=== PATIENT | female | born 1935 | race Caucasian/White ===

== ENCOUNTER 2016-06-09 15:34 | Emergency (ER) | payer MEDICARE ==
--- NOTE | 2016-06-09 17:40 | ER Document Report ---
ED Medical Screen (RME) - General TRAVEL OUTSIDE OF THE U.S. IN LAST 30 DAYS: No - General Chief Complaint: Shortness Of Breath Stated Complaint: DIFFICULTY BREATHING Notes: Patient is a 80-year-old female presenting with sore difficulty breathing, cough and congestion. Patient states she's had these symptoms for 3-4 days. Patient states she saw Dr. Rodriguez today for shortness of breath and he sent her to the emergency department. Patient has gained 5 pounds in the past week. Patient states that her blood glucose level has been higher than usual and the 200s and was in the 300s one time. Patient states her last A1c was 9.2. Patient hasn't seen a physician at [facility] because she has not been able to get a new physician in this area. Patient has been living in this area for 5 years. Patient has a history of CHF, asthma, COPD, emphysema, irregular heartbeat, SC, and is an insulin-dependent diabetic. Patient states she takes 40 of Lasix once a day. Patient states she had a heart catheterization in [place], [place] for half years ago. Patient had a myocardial infarction 6-7 years ago with no catheterization. patient states she takes aspirin daily and has not had a history of blood clots. (ELLY BUTT) - Related Data Allergies/Adverse Reactions: azithromycin Allergy (Verified 06/09/16 15:48) carvedilol [From Coreg] Allergy (Verified 06/09/16 15:48) cephalexin [From Keflex] Allergy (Verified 06/09/16 15:48) fentanyl Allergy (Verified 06/09/16 15:48) meperidine [From Demerol] Allergy (Verified 06/09/16 15:48) morphine Allergy (Verified 06/09/16 15:48) Past Medical History - Social History Chew tobacco use (# tins/day): No Frequency of alcohol use: None Drug Abuse: None - Past Medical History Cardiac Medical History: Reports: Hx Congestive Heart Failure, Hx Hypercholesterolemia, Hx Hypertension Pulmonary Medical History: Reports: Hx Asthma, Hx COPD Endocrine Medical History: Reports: Hx Diabetes Mellitus Type 2 Renal/ Medical History: Denies: Hx Peritoneal Dialysis GI Medical History: Reports: Hx Gastroesophageal Reflux Disease Psychiatric Medical History: Reports: Hx Depression - Immunizations Hx Diphtheria, Pertussis, Tetanus Vaccination: Yes Physical Exam - Respiratory Respiratory status: No respiratory distress Chest status: Nontender Breath sounds: Other - Database urinalysis bilaterally. - Cardiovascular Rhythm: Regular Heart sounds: Normal auscultation Murmur: No - Extremities General lower extremity: No: Edema - no pitting edema Course - Re-evaluation Re-evalutation: 06/09/16 17:49 Patient presents emergency per with a chief complaint mild cough congestion and shortness of breath for 3-4 days. She is insulin-dependent diabetes asthma CHF on 40 of Lasix by mouth daily COPD on O2 3 L [id number] including CPAP at night with oxygen history of SC heart catheter 4 years ago no stents or intervention. Not on any blood thinners except for aspirin no history of A. fib. Noticed an increased weight gain of 3-4 pounds over the past week. Has been managed by a primary care physician in [facility] while living here for the past 2 years has never been to the emergency department before sees Dr. Ventura for the CPAP machine at night followed up with him in the office today and they were concerned and sent her over here for evaluation. On ED arrival she is afebrile blood pressure stable she's little tachycardic she is 96% on 3 L with no respiratory distress. Heart rate and rhythm is regular without murmur Rub lungs are diminished with bibasilar rales no wheezes. Unable to do abdominal exam sent in the upright position no peripheral edema pitting bilaterally Tenderness swelling cellulitis or history DVT or pulmonary emboli. EKG chest x-ray acute labs and assessed in the back by ED physician for further assessment and disposition. I personally performed the services described in the documentation reviewed the documentation recorded by the scribe in my presence and it accurately incompletely records my words and actions (TRACIE BAH) - Vital Signs Vital signs: Temp Pulse Resp BP Pulse Ox 98.4 F 107 H 20 152/77 H 96 06/09/16 15:48 06/09/16 15:48 06/09/16 15:48 06/09/16 15:48 06/09/16 15:48 Scribe Documentation - Scribe Written by Scribe:: Elly Butt 06/09/16 17:50 acting as scribe for :: Reid
[2016-06-09 18:24] LABS: ABSOLUTE BASOPHILS # (AUTO) 0.1 10^3/uL (0.0-0.2); ABSOLUTE EOSINOPHILS # (AUTO) 0.3 10^3/uL (0.0-0.6); ABSOLUTE LYMPHOCYTES (AUTO) 2.2 10^3/uL (0.5-4.7); ABSOLUTE MONOCYTES (AUTO) 0.7 10^3/uL (0.1-1.4); ABSOLUTE NEUT (AUTO) 6.5 10^3/uL (1.7-8.2); BASOPHILS % (AUTO) 1.1 % (0-2); EOSINOPHILS % (AUTO) 2.7 % (0-6); HEMATOCRIT 38.8 % (36.0-47.0); HEMOGLOBIN 12.3 g/dL (12.0-15.5); HGB HCT DIFFERENCE -1.9; LYMPHOCYTES % (AUTO) 22.5 % (13-45); MEAN CORPUSCULAR HEMOGLOBIN 25.3 pg (27.0-33.4); MEAN CORPUSCULAR HGB CONC 31.8 g/dL (32.0-36.0); MEAN CORPUSCULAR VOLUME 80 fl (80-97); MONOCYTES % (AUTO) 7.3 % (3-13); RED BLOOD COUNT 4.87 10^6/uL (3.72-5.28); SEGMENTED NEUTROPHILS % (AUTO) 66.4 % (42-78); WHITE BLOOD COUNT 9.8 10^3/uL (4.0-10.5)
--- NOTE | 2016-06-09 18:41 | ER Document Report ---
Doctor's Note Notes: 06/09/16 18:40 EKG interpreted by myself to reveal sinus tachycardia 10 1 bpm with left ventricular hypertrophy no acute ST segment elevation or depression
[2016-06-09 18:48] LABS: ALANINE AMINOTRANSFERASE 23 U/L (9-52); ALBUMIN 3.8 g/dL (3.5-5.0); ALKALINE PHOSPHATASE 94 U/L (38-126); ANION GAP 12 (5-19); ASPARTATE AMINO TRANSFERASE 20 U/L (14-36); BILIRUBIN,DIRECT 0.2 mg/dL (0.0-0.4); BILIRUBIN,TOTAL 0.4 mg/dL (0.2-1.3); BLOOD UREA NITROGEN 20 mg/dL (7-20); CALCIUM 9.3 mg/dL (8.4-10.2); CARBON DIOXIDE 32 mmol/L (22-30); CHLORIDE 98 mmol/L (98-107); CREATINE KINASE 44 U/L (30-135); CREATININE RESULT 0.72 mg/dL (0.52-1.25); GLUCOSE 154 mg/dL (75-110); POTASSIUM 4.2 mmol/L (3.6-5.0); SODIUM 142.2 mmol/L (137-145); TOTAL PROTEIN 6.9 g/dL (6.3-8.2)
[2016-06-09 19:05] LABS: TROPONIN I < 0.012 ng/mL
[2016-06-09] MEDS ORDERED: IPRATROPIUM/ALBUTEROL 0.5-2.5 MG/3 ML AMPUL NEB ONE (19:17)
--- NOTE | 2016-06-09 19:22 | ER Document Report ---
ED Respiratory Problem - General Chief Complaint: Shortness Of Breath Stated Complaint: DIFFICULTY BREATHING Time seen by provider: 19:18 Mode of Arrival: Ambulatory Information source: Patient TRAVEL OUTSIDE OF THE U.S. IN LAST 30 DAYS: No - HPI Patient complains to provider of: COPD, Cough, Short of breath Onset: Last week Duration: Worse/persistent Quality of pain: No pain Context: Hx CHF, Hx COPD Short of Breath: Mild Chest pain/discomfort: Tightness Cough: Productive Sputum amount: Small Sputum color: White Sputum consistency: Mucoid At home treatment: Bronchodilators, Inhaled steroids Associated symptoms: Congestion, Cough, Short of breath Similar symptoms previously: Yes Recently seen / treated by doctor: Yes Notes: Patient is a 80-year-old female who was sent to the emergency room from Dr. Rodriguez's office for complaints of cough, congestion, shortness of breath that's been going on over the past week and worsening today, patient reports she is also tired at times, she denies any fever, cough is productive of a very small amount of whitish colored phlegm, she denies chest pain but does report chest tightness, she has been using her albuterol nebulizer treatments 3 times a day at home, and also uses Symbicort, she is on 3 L of oxygen at home and uses C Pap at night - Related Data Allergies/Adverse Reactions: azithromycin Allergy (Verified 06/09/16 15:48) carvedilol [From Coreg] Allergy (Verified 06/09/16 15:48) cephalexin [From Keflex] Allergy (Verified 06/09/16 15:48) fentanyl Allergy (Verified 06/09/16 15:48) meperidine [From Demerol] Allergy (Verified 06/09/16 15:48) morphine Allergy (Verified 06/09/16 15:48) Past Medical History - General Information source: Patient - Social History Smoking Status: Former Smoker Chew tobacco use (# tins/day): No Frequency of alcohol use: None Drug Abuse: None Family History: Reviewed & Not Pertinent Patient has suicidal ideation: No Patient has homicidal ideation: No - Past Medical History Cardiac Medical History: Reports: Hx Congestive Heart Failure, Hx Hypercholesterolemia, Hx Hypertension Pulmonary Medical History: Reports: Hx Asthma, Hx COPD Endocrine Medical History: Reports: Hx Diabetes Mellitus Type 2 Renal/ Medical History: Denies: Hx Peritoneal Dialysis GI Medical History: Reports: Hx Gastroesophageal Reflux Disease Psychiatric Medical History: Reports: Hx Depression - Immunizations Hx Diphtheria, Pertussis, Tetanus Vaccination: Yes Review of Systems - Review of Systems Constitutional: Malaise EENT: No symptoms reported Cardiovascular: No symptoms reported Respiratory: See HPI Gastrointestinal: No symptoms reported Genitourinary: No symptoms reported Female Genitourinary: No symptoms reported Musculoskeletal: No symptoms reported Skin: No symptoms reported Hematologic/Lymphatic: No symptoms reported Neurological/Psychological: No symptoms reported -: Yes All other systems reviewed and negative Physical Exam - Vital signs Vitals: Temp Pulse Resp BP Pulse Ox 98.4 F 107 H 20 152/77 H 96 06/09/16 15:48 06/09/16 15:48 06/09/16 15:48 06/09/16 15:48 06/09/16 15:48 Interpretation: Normal - General General appearance: Appears well, Alert - HEENT Head: Normocephalic, Atraumatic Eyes: Normal Pupils: PERRL - Respiratory Respiratory status: No respiratory distress Chest status: Nontender Breath sounds: Nonproductive cough, Wheezing - Very mild wheeze on end of exhalation Chest palpation: Normal - Cardiovascular Rhythm: Regular Heart sounds: Normal auscultation Murmur: No - Abdominal Inspection: Normal, Obese Distension: No distension Bowel sounds: Normal Tenderness: Nontender Organomegaly: No organomegaly - Back Back: Normal, Nontender - Extremities General upper extremity: Normal inspection, Nontender, Normal color, Normal ROM , Normal temperature General lower extremity: Normal inspection, Nontender, Normal color, Normal ROM , Normal temperature, Normal weight bearing. No: Margo's sign - Neurological Neuro grossly intact: Yes Cognition: Normal Orientation: AAOx4 Yung Coma Scale Eye Opening: Spontaneous Yung Coma Scale Verbal: Oriented Yung Coma Scale Motor: Obeys Commands Yung Coma Scale Total: 15 Speech: Normal Motor strength normal: LUE, RUE, LLE, RLE Sensory: Normal - Psychological Associated symptoms: Normal affect, Normal mood - Skin Skin Temperature: Warm Skin Moisture: Dry Skin Color: Normal Course - Re-evaluation Re-evalutation: 06/09/16 19:50 Patient resting comfortably, lab and imaging findings discussed with her at bedside which are relatively unremarkable, patient's lungs are clear to auscultation after one breathing treatment, she will be discharged home with instructions for follow-up and advised to return if symptoms worsen, patient acknowledges understanding and agreement with this plan - Vital Signs Vital signs: Temp Pulse Resp BP Pulse Ox 98.4 F 70 20 129/65 H 96 06/09/16 15:48 06/09/16 19:38 06/09/16 19:38 06/09/16 19:38 06/09/16 15:48 - Laboratory Result Diagrams: 06/09/16 17:50 06/09/16 17:50 Laboratory results interpreted by me: 06/09/16 06/09/16 17:50 17:50 MCH 25.3 L MCHC 31.8 L RDW 19.0 H Carbon Dioxide 32 H Glucose 154 H - Diagnostic Test Radiology reviewed: Image reviewed, Reports reviewed - EKG Interpretation by Me EKG shows normal: Sinus rhythm Rate: Tachycardia Rhythm: NSR Discharge - Discharge Clinical Impression: Viral upper respiratory illness Condition: Stable Disposition: HOME, SELF-CARE Instructions: Upper Respiratory Illness ([facility]), Viral Syndrome ([facility]) Additional Instructions: Follow up with your primary care provider in one to 2 days. Return to the emergency room immediately if symptoms worsen or any additional concerns.
--- NOTE | 2016-06-09 19:39 | EKG REPORT ---
SEVERITY:- ABNORMAL ECG - SINUS TACHYCARDIA LEFT VENTRICULAR HYPERTROPHY : Confirmed by: Timbo Rodriguez 09-Jun-2016 19:38:39
[2016-06-09 20:30] VITALS: BP 126/67
== END 2016-06-09 20:31 | disposition home or self-care (01) ==
LOC: ER 15:34
DX: J06.9 Acute upper respiratory infection, unspecified (principal); B97.89 Other viral agents as the cause of diseases classified elsewhere; J44.9 Chronic obstructive pulmonary disease, unspecified; R05 Cough; R06.02 Shortness of breath; R07.89 Other chest pain; R53.83 Other fatigue; R53.81 Other malaise; R00.0 Tachycardia, unspecified; E11.9 Type 2 diabetes mellitus without complications; Z99.81 Dependence on supplemental oxygen; Z79.51 Long term (current) use of inhaled steroids; Z79.899 Other long term (current) drug therapy; Z88.1 Allergy status to other antibiotic agents; Z88.8 Allergy status to other drugs, medicaments and biological substances; Z88.5 Allergy status to narcotic agent; Z87.891 Personal history of nicotine dependence; Z86.79 Personal history of other diseases of the circulatory system
CPT/HCPCS: 93005; 94640; 99285; 36415; 82550; 85025; 80053; 84484; 83880; 71010; 93010; A9270; J7620

== ENCOUNTER → 2016-07-25 | Outpatient (CLI) | payer MEDICARE ==
--- NOTE | 2016-07-25 12:45 | RADIOLOGY REPORT (SQ) ---
EXAM DESCRIPTION: KUB COMPLETED DATE/TIME: 07/25/2016 12:10 pm REASON FOR STUDY: HYDRONEPHROSIS WITH RENAL AND URETERAL CALCULOUS OBSTRUCTION N13.2 HYDRONEPHROSIS WITH RENAL AND URETERAL CALCULOUS OBSTR COMPARISON: None. NUMBER OF VIEWS: One view. TECHNIQUE: AP supine digital radiograph of the abdomen. LIMITATIONS: None. FINDINGS: CALCIFICATIONS: RIGHT KIDNEY: None. RIGHT URETER: 5 mm calcification overlying the right sacrum. LEFT KIDNEY: Faint 2 mm calcification in the mid kidney. LEFT URETER: No calcifications in the expected location of the ureter. BLADDER: No suspicious calcifications in the pelvis. Incidental calcified phleboliths. BOWEL GAS PATTERN AND SOFT TISSUES: Normal bowel gas pattern. No masses or organomegaly. BONES: No acute fracture. No worrisome bone lesions. OTHER: None. IMPRESSION: FAINT 2 MM CALCULUS IN THE LEFT KIDNEY. 5 MM CALCIFICATION OVERLYING THE RIGHT SACRUM I S PROBABLY A CALCIFIED PHLEBOLITH. URETERAL CALCULUS CANNOT BE EXCLUDED TECHNICAL DOCUMENTATION: JOB ID: [id number]- All Rights Reserved
== END ==
LOC: OD 11:35
PROVIDERS: ATTEND Urology
DX: N13.2 Hydronephrosis with renal and ureteral calculous obstruction (principal)
CPT/HCPCS: 74000

== ENCOUNTER → 2017-05-24 | Outpatient (CLI) | payer MEDICARE ==
--- NOTE | 2017-05-24 17:33 | RADIOLOGY REPORT (SQ) ---
EXAM DESCRIPTION: CHEST PA/LATERAL COMPLETED DATE/TIME: 05/24/2017 5:18 pm REASON FOR STUDY: SHORTNESS OF BREATH COMPARISON: AP chest 06/09/2016 EXAM PARAMETERS: NUMBER OF VIEWS: two views TECHNIQUE: Digital Frontal and Lateral radiographic views of the chest acquired. RADIATION DOSE: NA LIMITATIONS: Large patient, AP technique in a wheelchair FINDINGS: LUNGS AND PLEURA: No opacities, masses or pneumothorax. No pleural effusion. MEDIASTINUM AND HILAR STRUCTURES: No masses or contour abnormalities. HEART AND VASCULAR STRUCTURES: Mild cardiomegaly BONES: Lower cervical fusion hardware. Thoracic spine osteopenic without gross compression deformity HARDWARE: None in the chest. OTHER: No other significant finding. IMPRESSION: NO SIGNIFICANT RADIOGRAPHIC FINDING IN THE CHEST. TECHNICAL DOCUMENTATION: JOB ID: [id number] [employer]- All Rights Reserved Reading location - IP/workstation name: [facility]
== END ==
LOC: OD 16:18
PROVIDERS: ATTEND Physician Assistant Medical
DX: R06.02 Shortness of breath (principal)
CPT/HCPCS: 36415; 71046; 80053; 85025

== ENCOUNTER 2017-06-06 14:50 | Observation (INO) | payer MEDICARE ==
[2017-06-06] MEDS ORDERED: NORMAL SALINE 1000 ML 1,000 ML IV ONE ×2 (15:51→20:51)
--- NOTE | 2017-06-06 15:52 | ER Document Report ---
ED Medical Screen (RME) - General Chief Complaint: Low Blood Pressure Stated Complaint: BLOOD PRESSURE PROBLEMS Time Seen by Provider: 06/06/17 15:50 Notes: Patient states that she goes to pain management for fibromyalgia. She states well at pain management today they noticed that her blood pressure was low at 100 systolic. They referred her to the emergency department. She states she has had increasing chest and shoulder pain over the last several days. And she is also felt very weak. TRAVEL OUTSIDE OF THE U.S. IN LAST 30 DAYS: No - Related Data Allergies/Adverse Reactions: azithromycin Allergy (Verified 06/06/17 14:53) carvedilol [From Coreg] Allergy (Verified 06/06/17 14:53) cephalexin [From Keflex] Allergy (Verified 06/06/17 14:53) fentanyl Allergy (Verified 06/06/17 14:53) meperidine [From Demerol] Allergy (Verified 06/06/17 14:53) morphine Allergy (Verified 06/06/17 14:53) Past Medical History Renal/ Medical History: Denies: Hx Peritoneal Dialysis Physical Exam - Vital signs Vitals: Temp Pulse Resp BP Pulse Ox 97.5 F 61 17 116/47 L 97 06/06/17 14:58 06/06/17 14:58 06/06/17 14:58 06/06/17 14:58 06/06/17 14:58 Course - Vital Signs Vital signs: Temp Pulse Resp BP Pulse Ox 97.5 F 61 17 116/47 L 97 06/06/17 14:58 06/06/17 14:58 06/06/17 14:58 06/06/17 14:58 06/06/17 14:58
--- NOTE | 2017-06-06 18:10 | EKG REPORT ---
SEVERITY:- ABNORMAL ECG - SINUS RHYTHM NONSPECIFIC INTRAVENTRICULAR CONDUCTION DELAY LEFT VENTRICULAR HYPERTROPHY : Confirmed by: Sebastian Manuel MD 06-Jun-2017 18:09:31
--- NOTE | 2017-06-06 18:29 | ER Document Report ---
ED Blood Pressure Problem - General Chief Complaint: Low Blood Pressure Stated Complaint: BLOOD PRESSURE PROBLEMS Time Seen by Provider: 06/06/17 15:50 Notes: This is an 81-year-old female patient to the emergency department chief complaint of low blood pressure. States she has been feeling well over the last several days. Proximately one month ago she was having a large amount of lower extremity edema and was started on some diuretic therapy. Subsequently she also had a bronchitis and was on antibiotics. Has been treated for that. Has chronic pain issues with regards to her ostial osteoarthritis. Was followed by chronic pain management. Was noted to be having lower blood pressure today when she went to her appointment. Patient was sent here for further evaluation. Patient denies any fever, chills, sweats. Denies any chest pain at this time. The lower extremity edema has gotten remarkably better but her blood pressures been running low. Normally her blood pressure is in the 140-150 systolic range. TRAVEL OUTSIDE OF THE [place] IN LAST 30 DAYS: No - HPI Patient complains to provider of: Low blood pressure Onset: Just prior to arrival - Related Data Allergies/Adverse Reactions: azithromycin Allergy (Verified 06/06/17 14:53) carvedilol [From Coreg] Allergy (Verified 06/06/17 14:53) cephalexin [From Keflex] Allergy (Verified 06/06/17 14:53) fentanyl Allergy (Verified 06/06/17 14:53) meperidine [From Demerol] Allergy (Verified 06/06/17 14:53) morphine Allergy (Verified 06/06/17 14:53) Past Medical History - General Information source: Patient - Social History Smoking Status: Never Smoker Cigarette use (# per day): No Chew tobacco use (# tins/day): No Frequency of alcohol use: None Drug Abuse: None Lives with: Family Family History: Reviewed & Not Pertinent Patient has suicidal ideation: No Patient has homicidal ideation: No - Past Medical History Cardiac Medical History: Reports: Hx Congestive Heart Failure, Hx Hypertension Pulmonary Medical History: Reports: None EENT Medical History: Reports: None Neurological Medical History: Reports: None Endocrine Medical History: Reports: None Renal/ Medical History: Denies: Hx Peritoneal Dialysis Review of Systems - Review of Systems Constitutional: Malaise, Weakness. denies: Chills, Diaphoresis, Fever EENT: No symptoms reported Cardiovascular: Edema - Hypotension, Other. denies: Chest pain, Palpitations Respiratory: No symptoms reported Gastrointestinal: No symptoms reported Genitourinary: No symptoms reported Female Genitourinary: No symptoms reported Musculoskeletal: See HPI, Other - Osteoarthritis and pain. Skin: No symptoms reported Hematologic/Lymphatic: No symptoms reported Neurological/Psychological: No symptoms reported Physical Exam - Vital signs Vitals: Temp Pulse Resp BP Pulse Ox 97.5 F 61 17 116/47 L 97 06/06/17 14:58 06/06/17 14:58 06/06/17 14:58 06/06/17 14:58 06/06/17 14:58 Interpretation: Normal - General General appearance: Appears well, Alert - HEENT Head: Normocephalic, Atraumatic Eyes: Normal Pupils: PERRL - Respiratory Respiratory status: No respiratory distress Chest status: Nontender Breath sounds: Normal Chest palpation: Normal - Cardiovascular Rhythm: Regular Heart sounds: Normal auscultation Murmur: No - Abdominal Inspection: Normal Distension: No distension Bowel sounds: Normal Tenderness: Nontender Organomegaly: No organomegaly - Back Back: Normal, Nontender - Extremities General upper extremity: Normal inspection, Nontender, Normal color, Normal ROM , Normal temperature General lower extremity: Normal inspection, Nontender, Normal color, Normal ROM , Normal temperature, Normal weight bearing. No: Margo's sign - Neurological Neuro grossly intact: Yes Cognition: Normal Orientation: AAOx4 Yung Coma Scale Eye Opening: Spontaneous Yung Coma Scale Verbal: Oriented Yung Coma Scale Motor: Obeys Commands Yung Coma Scale Total: 15 Speech: Normal Motor strength normal: LUE, RUE, LLE, RLE Sensory: Normal - Psychological Associated symptoms: Normal affect, Normal mood - Skin Skin Temperature: Warm Skin Moisture: Dry Skin Color: Normal Course - Re-evaluation Re-evalutation: 06/06/17 19:54 Ill-appearing no acute distress at this time. Blood pressure is actually 152/ 60. EKG consistent for nonspecific interventricular conduction delay with LVH no signs of ischemia. Unchanged from prior EKG 06/06/17 19:56 At this time all of her labs fairly unremarkable with exception some baseline renal insufficiency with a slightly elevated creatinine as compared to prior. Baseline hemoglobin and hematocrit. Patient would likely has seen some over diuresis. Patient does not want to be admitted to the hospital. At this time I can go either way with this. Patient does have some outpatient follow-up. May make some medication changes urged her to follow-up if she absolutely refuses to be admitted. 06/06/17 20:48 Patient actually agrees to be admitted at this time. Has some baseline renal insufficiency. Still diastolic blood pressure is slightly low. Consulted hospitalist. Will admit to observation telemetry at this time for hydration and repeat labs in the morning, pain control and reassess. - Vital Signs Vital signs: Temp Pulse Resp BP Pulse Ox 97.5 F 61 13 132/43 H 99 06/06/17 14:58 06/06/17 14:58 06/06/17 20:02 06/06/17 20:02 06/06/17 20:02 - Laboratory Result Diagrams: 06/06/17 18:50 06/06/17 18:50 Laboratory results interpreted by me: 06/06/17 06/06/17 18:50 18:50 WBC 12.4 H Hgb 10.1 L Hct 31.1 L MCV 72 L MCH 23.3 L RDW 17.3 H Chloride 91 L Carbon Dioxide 35 H BUN 67 H Creatinine 1.52 H Est GFR ( Amer) 40 L Est GFR (Non-Af Amer) 33 L Glucose 207 H - EKG Interpretation by Ut EKG shows normal: Sinus rhythm, Intervals, QRS Complexes, ST-T Waves [place]/QRS: Left axis deviation Discharge - Discharge Clinical Impression: Transient hypotension, Acute renal insufficiency Condition: Good Disposition: ADMITTED OBSERVATION Admitting Provider: Hospitalist Count Includes [facility] Unit Admitted: Telemetry Referrals: CHICA MARQUES DO [Primary Care Provider] - Follow up as needed
--- NOTE | 2017-06-06 18:44 | RADIOLOGY REPORT (SQ) ---
EXAM DESCRIPTION: CHEST SINGLE VIEW COMPLETED DATE/TIME: 06/06/2017 6:36 pm REASON FOR STUDY: hypotension, right shoulder pain COMPARISON: 05/24/2017 EXAM PARAMETERS: NUMBER OF VIEWS: One view. TECHNIQUE: Single frontal radiographic view of the chest acquired. RADIATION DOSE: NA LIMITATIONS: Study is limited due to the patient's body habitus. Patient has made a shallow inspirat ion. FINDINGS: LUNGS AND PLEURA: No opacities, masses or pneumothorax. No pleural effusion. MEDIASTINUM AND HILAR STRUCTURES: No masses. Contour normal. HEART AND VASCULAR STRUCTURES: The configuration of the heart and mediastinal structures is unchanged BONES: No acute findings. HARDWARE: Orthopedic hardware is again identified in the lower cervical spine OTHER: No other significant finding. IMPRESSION: Limited study as noted above. No acute changes. Other findings as noted above TECHNICAL DOCUMENTATION: JOB ID: [id number] [employer]- All Rights Reserved Reading location - IP/workstation name: [email or web address]
[2017-06-06 19:05] LABS: ABSOLUTE BASOPHILS # (AUTO) 0.1 10^3/uL (0.0-0.2); ABSOLUTE EOSINOPHILS # (AUTO) 0.5 10^3/uL (0.0-0.6); ABSOLUTE LYMPHOCYTES (AUTO) 2.8 10^3/uL (0.5-4.7); BASOPHILS % (AUTO) 1.1 % (0-2); EOSINOPHILS % (AUTO) 3.7 % (0-6); HEMATOCRIT 31.1 % (36.0-47.0); HEMOGLOBIN 10.1 g/dL (12.0-15.5); LYMPHOCYTES % (AUTO) 22.4 % (13-45); MEAN CORPUSCULAR HEMOGLOBIN 23.3 pg (27.0-33.4); MEAN CORPUSCULAR HGB CONC 32.4 g/dL (32.0-36.0); MEAN CORPUSCULAR VOLUME 72 fl (80-97); PLATELET COUNT 308 10^3/uL (150-450); RED BLOOD COUNT 4.32 10^6/uL (3.72-5.28); RED CELL DISTRIBUTION WIDTH 17.3 % (11.5-14.0); SEGMENTED NEUTROPHILS % (AUTO) 64.8 % (42-78); TOTAL CELLS COUNTED % (AUTO) 100 %; WHITE BLOOD COUNT 12.4 10^3/uL (4.0-10.5)
[2017-06-06 19:15] LABS: APPEARANCE,URINE CLEAR; BILIRUBIN,URINE NEGATIVE (NEGATIVE); COLOR,URINE YELLOW; GLUCOSE, URINE NEGATIVE (NEGATIVE); KETONES,URINE NEGATIVE (NEGATIVE); LEUKOCYTE ESTERASE,URINE NEGATIVE (NEGATIVE); NITRITE,URINE NEGATIVE (NEGATIVE); PROTEIN,URINE NEGATIVE (NEGATIVE); URINE SPECIFIC GRAVITY 1.012; UROBILINOGEN,URINE NEGATIVE mg/dL (<2.0)
[2017-06-06 19:27] LABS: ALANINE AMINOTRANSFERASE 24 U/L (9-52); ALBUMIN 3.8 g/dL (3.5-5.0); ALKALINE PHOSPHATASE 88 U/L (38-126); ANION GAP 12 (5-19); ASPARTATE AMINO TRANSFERASE 23 U/L (14-36); BILIRUBIN,DIRECT 0.2 mg/dL (0.0-0.4); BILIRUBIN,TOTAL 0.2 mg/dL (0.2-1.3); BLOOD UREA NITROGEN 67 mg/dL (7-20); CALCIUM 9.3 mg/dL (8.4-10.2); CARBON DIOXIDE 35 mmol/L (22-30); CHLORIDE 91 mmol/L (98-107); GLUCOSE 207 mg/dL (75-110); POTASSIUM 4.2 mmol/L (3.6-5.0); SODIUM 138.3 mmol/L (137-145)
[2017-06-06] MEDS ORDERED: MAG HYDROX/AL HYDROX/SIMETH SUSP 30 ML UDCUP PO PRN (20:48)
[2017-06-06] MEDS ORDERED: MAGNESIUM HYDROXIDE SUSP 30 ML UDCUP PO PRN (20:48)
[2017-06-06] MEDS ORDERED: IPRATROPIUM/ALBUTEROL 0.5-2.5 MG/3 ML AMPUL NEB PRN (20:48)
[2017-06-06] MEDS ORDERED: TRAZODONE HCL 50 MG TABLET PO SCH (22:00)
[2017-06-06] MEDS ORDERED: DEXTROSE 40% GEL 15 GM TUBE PO PRN ×2 (22:09)
[2017-06-06] MEDS ORDERED: DEXTROSE 50%-WATER 25 GM/50 ML DISP.SYRIN IV PRN ×2 (22:09)
[2017-06-06] MEDS ORDERED: INSULIN LISPRO 100 UNIT/ML 3 ML VIAL SUBCUT PRN (22:09)
[2017-06-06] MEDS ORDERED: GLUCAGON,HUMAN RECOMB 1 MG INJ IM PRN (22:09)
[2017-06-06] MEDS ORDERED: (PENDING PHARMACY ID) (Insulin Degludec [Tresiba Flextouch U-100] 50 UNIT) SQ SCH (22:15)
[2017-06-06] MEDS: DILTIAZEM HCL 180 MG CAPSULE.CR PO SCH (22:46)
[2017-06-06] MEDS: HEPARIN SOD (PORCINE) 5,000 UNIT/ML 1 ML SYRINGE SUBCUT SCH (22:53)
[2017-06-07] MEDS: ACETAMINOPHEN 325 MG TABLET PO PRN ×2 (00:04→03:46)
[2017-06-07 05:13] LABS: ABSOLUTE BASOPHILS # (AUTO) 0.1 10^3/uL (0.0-0.2); ABSOLUTE EOSINOPHILS # (AUTO) 0.4 10^3/uL (0.0-0.6); ABSOLUTE LYMPHOCYTES (AUTO) 2.1 10^3/uL (0.5-4.7); ABSOLUTE NEUT (AUTO) 5.7 10^3/uL (1.7-8.2); BASOPHILS % (AUTO) 1.3 % (0-2); EOSINOPHILS % (AUTO) 4.8 % (0-6); HEMATOCRIT 27.7 % (36.0-47.0); HEMOGLOBIN 9.3 g/dL (12.0-15.5); LYMPHOCYTES % (AUTO) 22.6 % (13-45); MEAN CORPUSCULAR HEMOGLOBIN 23.7 pg (27.0-33.4); MEAN CORPUSCULAR HGB CONC 33.5 g/dL (32.0-36.0); MEAN CORPUSCULAR VOLUME 71 fl (80-97); MONOCYTES % (AUTO) 10.2 % (3-13); PLATELET COUNT 273 10^3/uL (150-450); RED BLOOD COUNT 3.91 10^6/uL (3.72-5.28); RED CELL DISTRIBUTION WIDTH 17.6 % (11.5-14.0); SEGMENTED NEUTROPHILS % (AUTO) 61.1 % (42-78); TOTAL CELLS COUNTED % (AUTO) 100 %; WHITE BLOOD COUNT 9.3 10^3/uL (4.0-10.5)
[2017-06-07 05:29] LABS: ANION GAP 11 (5-19); BLOOD UREA NITROGEN 53 mg/dL (7-20); CALCIUM 8.6 mg/dL (8.4-10.2); CARBON DIOXIDE 35 mmol/L (22-30); CHLORIDE 96 mmol/L (98-107); GLUCOSE 153 mg/dL (75-110); POTASSIUM 3.3 mmol/L (3.6-5.0); SODIUM 141.9 mmol/L (137-145)
[2017-06-07] MEDS ORDERED: POTASSIUM CHLORIDE 10 MEQ TABLET.SA PO ONE ×2 (05:59→09:30)
[2017-06-07] MEDS ORDERED: LEVOTHYROXINE SODIUM 0.1 MG TABLET PO SCH (06:00)
[2017-06-07] MEDS ORDERED: DULOXETINE HCL 30 MG CAPSULE.DR PO SCH (06:00)
--- NOTE | 2017-06-07 06:13 | PDOC H&P ---
History of Present Illness Admission Date/PCP: 06/06/17 21:07 CHICA MARQUES DO Patient complains of: Low blood pressure, diffuse pain and confusion History of Present Illness: ERIC LUU is a 81 year old female with past medical history of chronic pain, obstructive sleep apnea, morbid obesity and diabetes. Patient presents with 3 days of generalized weakness, diffuse pain, confusion and low blood pressure. Patient was recently diagnosed with bronchitis and volume overload placed on unknown antibiotic and increased dose of diuretic. Patient also complained of uncontrolled chronic pain prompting her to take more Percocet than usual. During outpatient follow-up of chronic pain she is found to have hypotension and was referred to the emergency room for evaluation where she is found to have acute renal failure, prerenal azotemia BUN 67 creatinine 1.5, and blood pressure 100/40. She denies chest pain nausea vomiting or shortness of breath. She started on a bolus of normal saline and referred to the hospitalist for admission. Past Medical History Cardiac Medical History: Reports: Congestive Heart Failure - Diastolic heart failure, Hypertension Pulmonary Medical History: Reports: None, Chronic Obstructive Pulmonary Disease (COPD) EENT Medical History: Reports: None Neurological Medical History: Reports: None Endocrine Medical History: Reports: None Musculoskeltal Medical History: Reports: Arthritis Social History Information Source: Patient, Relative, Emergency Med Personnel Lives with: Family Smoking Status: Never Smoker Frequency of Alcohol Use: None Drugs: None - Advance Directive Resuscitation Status: Full Code Family History Family History: Arthritis, Hypertension Parental Family History Reviewed: Yes Children Family History Reviewed: Yes Sibling(s) Family History Reviewed.: Yes Medication/Allergy Home Medications: Aspirin [Ecotrin] 81 mg PO DAILY 06/06/17 Budesonide/Formoterol Fumarate [Symbicort 80-4.5 Mcg Inhaler] 1 inh IH Q12 06/06 Cholecalciferol (Vitamin D3) [Vitamin D] 2,000 unit PO BID 06/06/17 Clonidine HCl 0.2 mg PO Q12 06/06/17 Cranberry Extract [Cranberry 405 mg Capsule] 405 mg PO DAILY 06/06/17 Diltiazem HCl [Diltiazem 24Hr Cd] 180 mg PO Q12 06/06/17 Duloxetine HCl [Cymbalta] 30 mg PO Q8 06/06/17 Exenatide Microspheres [Bydureon Pen] 2 mg SQ Q7D 06/06/17 Fluticasone Propionate [Flonase Nasal Supply 50 Mcg/Supply 16 gm] 2 spray NAREB DAILY 06/06/17 Furosemide [Lasix 80 mg Tablet] 80 mg PO BID MDD FILLED 05/17/17 06/06/17 Insulin Degludec [Tresiba Flextouch U-100] 50 unit SQ WSUPPER 06/06/17 Insulin Lispro [Humalog Kwikpen] 0 unit SQ .SLD SCALE MDD LAST [id number] Levothyroxine Sodium [Synthroid 0.1 mg Tablet] 0.1 mg PO Q6AM 06/06/17 Lidocaine 1 applic TP TIDP PRN 06/06/17 Lifitegrast [Xiidra] 1 each OP .CLARIFY 06/06/17 Losartan Potassium 50 mg PO DAILY 06/06/17 Methenamine Hippurate [Hiprex] 1 gm PO DAILY 06/06/17 Metolazone 2.5 mg PO DAILY 06/06/17 Metronidazole [Metrogel 0.75% Vaginal Gel] 1 applic PV .CLARIFY 06/06/17 Mirabegron [Myrbetriq] 50 mg PO DAILY 06/06/17 Oxycodone HCl/Acetaminophen [Percocet 7.5-325 mg Tablet] 1 tab PO Q8 06/06/17 Pioglitazone HCl [Actos] 15 mg PO DAILY 06/06/17 Pitavastatin Calcium [Livalo] 2 mg PO DAILY 06/06/17 Potassium Chloride [Klor-Con M20] 40 meq PO BID 06/06/17 Pregabalin [Lyrica 75 mg Capsule] 75 mg PO Q8 06/06/17 Rabeprazole Sodium [Aciphex] 20 mg PO Q12 06/06/17 Spironolactone 25 mg PO DAILY 06/06/17 Sulfacetamide Sodium [Ovace Plus] 1 applic TP .CLARIFY 06/06/17 Torsemide [Demadex 20 mg Tablet] 20 mg PO QAM 06/06/17 Torsemide [Demadex 20 mg Tablet] 40 mg PO QHS 06/06/17 Trazodone HCl 100 mg PO QHS 06/06/17 Allergies/Adverse Reactions: azithromycin Allergy (Verified 06/06/17 14:53) carvedilol [From Coreg] Allergy (Verified 06/06/17 14:53) cephalexin [From Keflex] Allergy (Verified 06/06/17 14:53) fentanyl Allergy (Verified 06/06/17 14:53) meperidine [From Demerol] Allergy (Verified 06/06/17 14:53) morphine Allergy (Verified 06/06/17 14:53) Review of Systems Constitutional: PRESENT: as per HPI, fatigue, weakness. ABSENT: fever(s), headache(s), night sweats Eyes: ABSENT: visual disturbances Ears: ABSENT: hearing changes Cardiovascular: PRESENT: as per HPI, dyspnea on exertion. ABSENT: edema, orthropnea, palpitations Respiratory: ABSENT: cough, hemoptysis Gastrointestinal: ABSENT: abdominal pain, constipation, diarrhea, hematemesis, hematochezia, nausea, vomiting Genitourinary: ABSENT: dysuria, hematuria Musculoskeletal: PRESENT: as per HPI, back pain, muscle weakness. ABSENT: joint swelling Integumentary: ABSENT: rash, wounds Neurological: PRESENT: as per HPI, confusion, dizziness - Lightheaded upon standing, weakness. ABSENT: abnormal gait, abnormal movements, abnormal speech , convulsions, focal weakness Psychiatric: ABSENT: anxiety, depression, homidical ideation, suicidal ideation Endocrine: ABSENT: cold intolerance, heat intolerance, polydipsia, polyuria Hematologic/Lymphatic: ABSENT: easy bleeding, easy bruising Physical Exam Vital Signs: Temp Pulse Resp BP Pulse Ox 98.3 F 74 18 133/37 H 97 06/06/17 23:47 06/07/17 02:00 06/07/17 04:10 06/06/17 23:51 06/07/17 04:10 General appearance: PRESENT: no acute distress, cooperative, morbidly obese. ABSENT: severe distress Head exam: PRESENT: atraumatic, normocephalic Eye exam: PRESENT: conjunctiva pink, EOMI, PERRLA. ABSENT: scleral icterus Ear exam: PRESENT: normal external ear exam Mouth exam: PRESENT: dry mucosa. ABSENT: laceration, moist, neck supple Neck exam: ABSENT: carotid bruit, JVD, lymphadenopathy, thyromegaly Respiratory exam: PRESENT: clear to auscultation amy, symmetrical. ABSENT: rales, rhonchi, tachypnea, wheezes Cardiovascular exam: PRESENT: RRR. ABSENT: diastolic murmur, rubs, systolic murmur Pulses: PRESENT: normal dorsalis pedis pul Vascular exam: PRESENT: normal capillary refill GI/Abdominal exam: PRESENT: normal bowel sounds, soft. ABSENT: distended, guarding, mass, organolmegaly, rebound, tenderness Rectal exam: PRESENT: deferred Extremities exam: PRESENT: full ROM. ABSENT: calf tenderness, clubbing, pedal edema Neurological exam: PRESENT: alert, awake, oriented to person, oriented to place , oriented to time, oriented to situation, CN II-XII grossly intact. ABSENT: motor sensory deficit Psychiatric exam: PRESENT: appropriate affect, normal mood. ABSENT: homicidal ideation, suicidal ideation Skin exam: PRESENT: dry, intact, warm. ABSENT: cyanosis, rash Results Laboratory Results: 06/07/17 04:58 06/07/17 04:58 06/07/17 06/07/17 04:58 04:58 WBC 9.3 RBC 3.91 Hgb 9.3 L Hct 27.7 L MCV 71 L MCH 23.7 L MCHC 33.5 RDW 17.6 H Plt Count 273 Seg Neutrophils % 61.1 Lymphocytes % 22.6 Monocytes % 10.2 Eosinophils % 4.8 Basophils % 1.3 Absolute Neutrophils 5.7 Absolute Lymphocytes 2.1 Absolute Monocytes 1.0 Absolute Eosinophils 0.4 Absolute Basophils 0.1 Sodium 141.9 Potassium 3.3 L Chloride 96 L Carbon Dioxide 35 H Anion Gap 11 BUN 53 H Creatinine 1.13 Est GFR ( Amer) 56 L Est GFR (Non-Af Amer) 46 L Glucose 153 H Calcium 8.6 Magnesium 2.3 Impressions: Chest X-Ray 06/06/17 18:28 IMPRESSION: Limited study as noted above. No acute changes. Other findings as noted above Assessment & Plan - Diagnosis (1) Acute renal insufficiency Is this a current diagnosis for this admission?: Yes Plan: Multifactorial secondary to loop diuretic and poor p.o. intake, IV fluid challenge, hold diuretic, encourage p.o. intake, reevaluate chemistry (2) Chronic pain Is this a current diagnosis for this admission?: Yes Plan: Limit narcotics given reported confusion, may have contributed to presentation (3) Morbid obesity Is this a current diagnosis for this admission?: Yes Plan: Morbid obesity will evaluate for metabolic cause with evaluation of thyroid function and dietitian consultation (4) Obstructive sleep apnea Is this a current diagnosis for this admission?: Yes Plan: CPAP avoid medications depressing respiratory drive (5) Polypharmacy Plan: Patient medication list includes 30 active medications. Optimize and reconciliation underway. (6) Transient hypotension Is this a current diagnosis for this admission?: Yes Plan: Likely multifactorial secondary to #1, evaluate orthostatic blood pressures. (7) Diabetes Is this a current diagnosis for this admission?: Yes Plan: Discontinue Actos given history of diastolic heart failure, optimize insulin regimen. - Time Time Spent: 50 to 70 Minutes - Inpatient Certification Medical Necessity: Need Close Monitoring Due to Risk of Patient Decompensation
[2017-06-07] MEDS: HEPARIN SOD (PORCINE) 5,000 UNIT/ML 1 ML SYRINGE SUBCUT SCH (06:29)
[2017-06-07] MEDS: DILTIAZEM HCL 180 MG CAPSULE.CR PO SCH (09:37)
[2017-06-07] MEDS ORDERED: DOCUSATE SODIUM 100 MG CAPSULE PO SCH (10:00)
[2017-06-07] MEDS ORDERED: BUDESONIDE/FORMOTEROL 80-4.5 MCG 60 PUFF/6.9 GM MDI IH SCH (10:00)
[2017-06-07] MEDS ORDERED: CLONIDINE HCL 0.2 MG TABLET PO SCH (10:00)
[2017-06-07] MEDS ORDERED: ASPIRIN 81 MG TABLET, ENT COATED PO SCH (10:00)
[2017-06-07] MEDS ORDERED: (PENDING PHARMACY ID) (Diltiazem Hcl [Diltiazem 24hr Cd] 180 MG) PO SCH (10:00)
[2017-06-07] MEDS ORDERED: CHOLECALCIFEROL (D3) 1,000 UNIT TABLET PO SCH (10:00)
--- NOTE | 2017-06-07 11:23 | PDOC DISCHARGE SUMMARY ---
General - Admit/Disc Date/PCP Admission Date/Primary Care Provider: 06/06/17 21:07 CHICA MARQUES, DO Discharge Date: 06/07/17 - Discharge Diagnosis (1) Hypokalemia Is this a current diagnosis for this admission?: Yes (2) Acute renal insufficiency Is this a current diagnosis for this admission?: Yes (3) Diabetes Is this a current diagnosis for this admission?: Yes (4) Morbid obesity Is this a current diagnosis for this admission?: Yes (5) Obstructive sleep apnea Is this a current diagnosis for this admission?: Yes (6) Polypharmacy Is this a current diagnosis for this admission?: Yes (7) Transient hypotension Is this a current diagnosis for this admission?: Yes - Additional Information Resuscitation Status: Full Code Discharge Diet: As Tolerated, Cardiac, Diabetic Discharge Activity: Activity As Tolerated Home Medications: Aspirin [Ecotrin] 81 mg PO DAILY 06/06/17 Budesonide/Formoterol Fumarate [Symbicort 80-4.5 Mcg Inhaler] 1 inh IH Q12 06/06 Cholecalciferol (Vitamin D3) [Vitamin D3] 2,000 unit PO BID 06/06/17 Clonidine HCl 0.2 mg PO Q12 06/06/17 Cranberry Extract [Cranberry 405 mg Capsule] 405 mg PO DAILY 06/06/17 Diltiazem HCl [Diltiazem 24Hr Cd] 180 mg PO Q12 06/06/17 Duloxetine HCl [Cymbalta] 30 mg PO Q8 06/06/17 Exenatide Microspheres [Bydureon Pen] 2 mg SQ Q7D 06/06/17 Fluticasone Propionate [Flonase Nasal [place] 50 Mcg/[place]ier 16 gm] 2 spray NAREB DAILY 06/06/17 Insulin Degludec [Tresiba Flextouch U-100] 50 unit SQ WSUPPER 06/06/17 Insulin Lispro [Humalog Kwikpen U-100] 0 unit SQ .SLD SCALE MDD LAST [id number]/17 Levothyroxine Sodium [Synthroid 0.1 mg Tablet] 0.1 mg PO Q6AM 06/06/17 Lidocaine 1 applic TP TIDP PRN 06/06/17 Lifitegrast [Xiidra] 1 each OP .CLARIFY 06/06/17 Losartan Potassium 50 mg PO DAILY 06/06/17 Methenamine Hippurate [Hiprex] 1 gm PO DAILY 06/06/17 Metronidazole [Metrogel 0.75% Vaginal Gel] 1 applic PV .CLARIFY 06/06/17 Mirabegron [Myrbetriq] 50 mg PO DAILY 06/06/17 Oxycodone HCl/Acetaminophen [Percocet 7.5-325 mg Tablet] 1 tab PO Q8 06/06/17 Pioglitazone HCl [Actos] 15 mg PO DAILY 06/06/17 Pitavastatin Calcium [Livalo] 2 mg PO DAILY 06/06/17 Potassium Chloride [Klor-Con M20] 40 meq PO BID 06/06/17 Pregabalin [Lyrica 75 mg Capsule] 75 mg PO Q8 06/06/17 Rabeprazole Sodium [Aciphex] 20 mg PO Q12 06/06/17 Spironolactone 25 mg PO DAILY 06/06/17 Sulfacetamide Sodium [Ovace Plus] 1 applic TP .CLARIFY 06/06/17 Torsemide [Demadex 20 mg Tablet] 20 mg PO QAM 06/06/17 Trazodone HCl 100 mg PO QHS 06/06/17 Torsemide [Demadex 20 mg Tablet] 20 mg PO QHS #0 06/07/17 History of Present Illness Patient complains of: Dizziness and weakness History of Present Illness: ERIC LUU is a 81 year old female with past medical history of chronic pain, obstructive sleep apnea, morbid obesity and diabetes. Patient presents with 3 days of generalized weakness, diffuse pain, confusion and low blood pressure. Patient was recently diagnosed with bronchitis and volume overload placed on unknown antibiotic and increased dose of diuretic. Patient also complained of uncontrolled chronic pain prompting her to take more Percocet than usual. During outpatient follow-up of chronic pain she is found to have hypotension and was referred to the emergency room for evaluation where she is found to have acute renal failure, prerenal azotemia BUN 67 creatinine 1.5, and blood pressure 100/40. She denies chest pain nausea vomiting or shortness of breath. She started on a bolus of normal saline and referred to the hospitalist for admission. Hospital Course Hospital Course: Patient was treated with IV fluids and she actually made a quite remarkable recovery within a few hours of treatment. Her Lasix has been on hold and she is advised to increase her fluid intake judiciously. Repeat labs done today have improved substantially. Without clinical improvement and hemodynamic stability and with no intervention being planned patient is been discharged home. Physical Exam Vital Signs: Temp Pulse Resp BP Pulse Ox 98.7 F 87 16 139/55 H 99 06/07/17 09:08 06/07/17 09:08 06/07/17 09:08 06/07/17 09:08 06/07/17 09:08 Intake & Output 06/06/17 06/07/17 06/08/17 06:59 06:59 06:59 Intake Total 150 Balance 150 Weight 139.4 kg General appearance: PRESENT: no acute distress, obese, well-developed Head exam: PRESENT: atraumatic, normocephalic Eye exam: PRESENT: conjunctiva pink, EOMI, PERRLA. ABSENT: scleral icterus Ear exam: PRESENT: normal external ear exam Mouth exam: PRESENT: moist, tongue midline Neck exam: ABSENT: carotid bruit, JVD, lymphadenopathy, thyromegaly Respiratory exam: PRESENT: clear to auscultation amy. ABSENT: rales, rhonchi, wheezes Cardiovascular exam: PRESENT: RRR. ABSENT: diastolic murmur, rubs, systolic murmur Pulses: PRESENT: normal dorsalis pedis pul Vascular exam: PRESENT: normal capillary refill GI/Abdominal exam: PRESENT: normal bowel sounds, soft. ABSENT: distended, guarding, mass, organolmegaly, rebound, tenderness Rectal exam: PRESENT: deferred Extremities exam: PRESENT: full ROM, pedal edema. ABSENT: calf tenderness, clubbing Musculoskeletal exam: PRESENT: other - erythema LLE Neurological exam: PRESENT: alert, awake, oriented to person, oriented to place , oriented to time, oriented to situation, CN II-XII grossly intact. ABSENT: motor sensory deficit Psychiatric exam: PRESENT: appropriate affect, normal mood. ABSENT: homicidal ideation, suicidal ideation Skin exam: PRESENT: dry, intact, warm. ABSENT: cyanosis, rash Results Laboratory Results: 06/07/17 04:58 06/07/17 04:58 06/07/17 06/07/17 04:58 04:58 WBC 9.3 RBC 3.91 Hgb 9.3 L Hct 27.7 L MCV 71 L MCH 23.7 L MCHC 33.5 RDW 17.6 H Plt Count 273 Seg Neutrophils % 61.1 Lymphocytes % 22.6 Monocytes % 10.2 Eosinophils % 4.8 Basophils % 1.3 Absolute Neutrophils 5.7 Absolute Lymphocytes 2.1 Absolute Monocytes 1.0 Absolute Eosinophils 0.4 Absolute Basophils 0.1 Sodium 141.9 Potassium 3.3 L Chloride 96 L Carbon Dioxide 35 H Anion Gap 11 BUN 53 H Creatinine 1.13 Est GFR ( Amer) 56 L Est GFR (Non-Af Amer) 46 L Glucose 153 H Calcium 8.6 Magnesium 2.3 Impressions: Chest X-Ray 06/06/17 18:28 IMPRESSION: Limited study as noted above. No acute changes. Other findings as noted above Qualifiers - * PATIENT BEING DISCHARGED WITH ANY OF THE FOLLOWING DIAGNOSIS: No Plan Time Spent: Less than 30 Minutes
[2017-06-07 11:45] VITALS: BP 116/47
== END 2017-06-07 12:41 | disposition home or self-care (01) ==
LOC: ER 14:50 → EH 21:07 → 3W 23:41
PROVIDERS: ADMIT Internal Medicine; ATTEND Internal Medicine
DX: E87.6 Hypokalemia (principal); N28.9 Disorder of kidney and ureter, unspecified; E11.9 Type 2 diabetes mellitus without complications; E66.01 Morbid (severe) obesity due to excess calories; Z68.43 Body mass index [BMI] 50.0-59.9, adult; G47.33 Obstructive sleep apnea (adult) (pediatric); I95.89 Other hypotension; G89.29 Other chronic pain; L53.8 Other specified erythematous conditions; R41.0 Disorientation, unspecified; I11.0 Hypertensive heart disease with heart failure; I50.30 Unspecified diastolic (congestive) heart failure; M54.9 Dorsalgia, unspecified; M19.90 Unspecified osteoarthritis, unspecified site; M79.7 Fibromyalgia; R07.9 Chest pain, unspecified; M25.511 Pain in right shoulder; Z79.899 Other long term (current) drug therapy; Z79.82 Long term (current) use of aspirin; Z79.4 Long term (current) use of insulin; Z87.09 Personal history of other diseases of the respiratory system; Z82.49 Family history of ischemic heart disease and other diseases of the circulatory system
CPT/HCPCS: 93005; 99285; 96372; 96360; 96361; 36415 ×2; 87086; 82553; 82962; 82550; 83735; 84443; 85025 ×2; 80048; 80053; 81001; 84484; 83880; 71045; 93010; 94660; 97163; G0378 ×2; A9270 ×11; J1644 ×2; J3490; J7030; G8978; G8979